=== PATIENT | female | born 1935 | race Caucasian/White ===

== ENCOUNTER → 2016-10-13 | Outpatient (CLI) | payer OTHER ==
[2016-10-13 13:27] LABS: BLOOD GAS BASE EXCESS 0.9 mmol/L (-2-2); BLOOD GAS CARBOXYHEMOGLOBIN 1.2 % (0-4); BLOOD GAS HCO3 25 mmol/L (22-26); BLOOD GAS METHEMOGLOBIN 1.2 % (0-2); BLOOD GAS O2 HGB SATURATION 94 % (90-100); BLOOD GAS OXYGEN CONTENT 18.1 Vol % (12.0-20.0); BLOOD GAS PCO2 36 mmHg (38-42); BLOOD GAS PO2 83 mmHg (61-120); BLOOD GAS TOTAL HGB 13.6 G/DL (12.0-16.0); CRITICAL VALUE NO; DRAW SITE RT RADIAL; FIO2 21 %; NUMBER OF ARTERIAL PUNCTURES 1; TEMP CORR TO 98.6
[2016-10-13 13:28] LABS: STAT NO; ULNAR PULSE PRESENT
--- NOTE | 2016-10-19 11:26 | RSPPFT ---
DATE OF PROCEDURE: 10/13/16 COMMENTS: VOLUMES DYNAMIC: FVC and FEV1 normal. STATIC: TLC, RV and FRC normal. FLOWS: FEV1% normal; FEF 25-75 normal. DIFFUSION: Mildly reduced. FLOW VOLUME LOOP: Mild airflow obstruction. IMPRESSION: Mild to moderate reduction in diffusion without significant obstruction or restriction and no improvement post-bronchodilator. Clinical correlation is required.
== END ==
LOC: HRSP 11:51
PROVIDERS: ATTEND Internal Medicine
DX: R06.02 Shortness of breath (principal)
CPT/HCPCS: 36600; 82805; 94060; 94620; 94726; 94729; 95012

== ENCOUNTER → 2016-11-10 | Outpatient (CLI) | payer OTHER | LOC: HRSP 12:46 | PROVIDERS: ATTEND Internal Medicine | DX: R06.02 Shortness of breath (principal) ==